=== PATIENT | female | born 1965 | race Caucasian/White ===

== ENCOUNTER 2022-03-12 08:48 | Day surgery (SDC) | payer OTHER ==
[~2022-03-12] VITALS: Ht 157.5 cm; Wt 108.9 kg
[2022-03-12] MEDS ORDERED: fentaNYL citrate 0.05 MG/ML VIAL ONE (09:33)
[2022-03-12] MEDS ORDERED: MIDAZOLAM 2 MG/2 ML VIAL ONE (09:33)
[2022-03-12] MEDS ORDERED: diphenhydrAMINE 50 MG/ML VIAL ONE (09:33)
[2022-03-12] MEDS: LIDOCAINE 2% 100 MG/5 ML UJET TP ONE (10:02)
[2022-03-12] MEDS: MIDAZOLAM 2 MG/2 ML VIAL IVP ONE (10:02)
[2022-03-12] MEDS: fentaNYL citrate 0.05 MG/ML VIAL IVP ONE (10:03)
== END 2022-03-12 11:20 | disposition home or self-care (01) ==
LOC: MMU 08:48 → MDS 08:48
PROVIDERS: ATTEND Internal Medicine Gastroenterology
DX: Z12.11 Encounter for screening for malignant neoplasm of colon (principal); K57.30 Diverticulosis of large intestine without perforation or abscess without bleeding; I10 Essential (primary) hypertension; K21.9 Gastro-esophageal reflux disease without esophagitis; M19.90 Unspecified osteoarthritis, unspecified site; F17.210 Nicotine dependence, cigarettes, uncomplicated; E66.9 Obesity, unspecified; Z79.899 Other long term (current) drug therapy; Z20.822 Contact with and (suspected) exposure to COVID-19
CPT/HCPCS: 45378; 87426; J2250; J3010; J1200